=== PATIENT | male | born 1965 | race African-American/Black ===

== ENCOUNTER 2019-02-09 16:55 | Emergency (ER) | payer MEDICARE ==
[~2019-02-09] VITALS: Ht 182.9 cm; Wt 104.0 kg
[2019-02-09] MEDS ORDERED: ONDANSETRON HCL 4MG/2ML INJ IV STA (17:25)
[2019-02-09] MEDS ORDERED: SODIUM CHLORIDE 0.9% 1,000 ML IV ONE (17:25)
[2019-02-09] MEDS ORDERED: MECLIZINE 25MG TABLET PO ONE (17:30)
[2019-02-09 18:16] LABS: CHLORIDE 102 mEq/L (98-107)
[2019-02-09 18:18] LABS: BASOPHILS % 0.3 % (0.0-2.0); EOSINOPHILS % 0.7 % (0.0-5.0); HEMATOCRIT. 44.5 % (42.0-52.0); HEMOGLOBIN. 14.8 g/dL (14.0-18.0); LYMPHOCYTES % 24.5 % (20.0-50.0); MEAN CORPUSCULAR HEMOGLOBIN 27.4 pg (28.0-32.0); MEAN CORPUSCULAR VOLUME 82.5 fL (80.0-94.0); MEAN PLATELET VOLUME 8.2 fl (7.4-10.4); NEUTROPHILS % 66.5 % (40.0-76.0); PLATELET 178 x1000/uL (130-400); RED CELL DISTRIBUTION WIDTH 15.8 % (11.6-14.6)
[2019-02-09 18:20] LABS: ETHANOL BLOOD < 10 mg/dL
[2019-02-09 18:27] LABS: CLARITY URINE CLEAR (CLEAR); COLOR URINE YELLOW (YELLOW); KETONES URINE NEGATIVE (NEGATIVE); LEUKOCYTE ESTERASE URINE NEGATIVE (NEGATIVE); NITRITE URINE NEGATIVE (NEGATIVE); OCCULT BLOOD URINE NEGATIVE (NEGATIVE); PH URINE 8.5 (4.5-8.0); PROTEIN URINE 1+ (NEGATIVE); SPECIFIC GRAVITY URINE 1.011 (1.005-1.030)
[2019-02-09 18:38] LABS: *AMPHETAMINES SCREEN URINE NEGATIVE (NEGATIVE)
[2019-02-09 18:39] LABS: *BARBITURATES SCREEN URINE NEGATIVE (NEGATIVE); *BENZODIAZEPINES SCREEN URINE NEGATIVE (NEGATIVE); *COCAINE SCREEN URINE NEGATIVE (NEGATIVE); METHADONE URINE SCREEN NEGATIVE (NEGATIVE); OPIATES URINE SCREEN NEGATIVE (NEGATIVE)
[2019-02-09 18:40] LABS: CANNABINOID URINE SCREEN NEGATIVE (NEGATIVE); PHENCYCLIDINE URINE SCREEN NEGATIVE (NEGATIVE)
[2019-02-09 19:16] VITALS: BP 122/77
== END 2019-02-09 19:17 | disposition home or self-care (01) ==
LOC: ER 16:55
DX: R42 Dizziness and giddiness (principal); R07.89 Other chest pain; E78.00 Pure hypercholesterolemia, unspecified; I10 Essential (primary) hypertension
CPT/HCPCS: 36415; 70450; 71045; 80053; 80305; 80320; 81003; 84484; 85025; 96361; 96374; 99284; J2405; J7030; J8597; G0480

== ENCOUNTER 2024-10-17 17:52 | Emergency (ER) | payer MEDICARE, MEDICAID ==
[~2024-10-17] VITALS: Ht 182.9 cm; Wt 70.0 kg
[~2024-10-17 17:52] MED LIST: ATOR10TA69 MT; DIVA-75 MT; LISI10TA26 MT; METF-414 PO; OLAN20TA29 MT; TRAZ-251 MT; TRIA1TAB92 MT
[2024-10-17 17:57] VITALS: BP 141/76; PULSE 108; RESP 18; TEMP 38.1; O2SAT 98
== END 2024-10-17 22:30 | disposition left against medical advice (07) ==
LOC: ER 17:52
DX: R53.1 Weakness (principal); I10 Essential (primary) hypertension; E78.00 Pure hypercholesterolemia, unspecified; E11.9 Type 2 diabetes mellitus without complications; Z79.899 Other long term (current) drug therapy
CPT/HCPCS: 71045; 93005; 99283